=== PATIENT | male | born 1970 | race Caucasian/White ===

== ENCOUNTER 2019-09-15 14:26 | Emergency (ER) | payer SELFPAY ==
[~2019-09-15] VITALS: Ht 172.7 cm; Wt 86.2 kg
[2019-09-15] MEDS ORDERED: ONDANSETRON HCL INJ 2MG/ML 2ML 2 MG/ML VIAL IV STA (14:33)
[2019-09-15] MEDS ORDERED: SODIUM CHLORIDE 0.9% 1000ML 1,000 ML ONE (14:39)
[2019-09-15] MEDS ORDERED: FENTANYL CITRATE/PF 100MCG/2 ML INJ ONE ×2 (14:40→15:20)
[2019-09-15] MEDS ORDERED: CEFAZOLIN SOD 1 GM VIAL ONE (14:40)
[2019-09-15] MEDS ORDERED: TETANUS/DIPHTHERIA TOX ADULT 0.5 ML SYR ONE (14:41)
[2019-09-15] MEDS ORDERED: ONDANSETRON HCL INJ 2MG/ML 2ML 2 MG/ML VIAL ONE (14:41)
[2019-09-15] MEDS ORDERED: FENTANYL CITRATE/PF 100MCG/2 ML INJ IV ONE ×2 (14:45→15:30)
[2019-09-15] MEDS ORDERED: SODIUM CHLORIDE 0.9% 1000ML 1,000 ML IV SCH (14:45)
[2019-09-15] MEDS ORDERED: CEFAZOLIN SOD 1 GM VIAL IV SCH (14:45)
[2019-09-15] MEDS ORDERED: TETANUS/DIPHTHERIA TOX ADULT 0.5 ML SYR IM ONE (14:45)
[2019-09-15] MEDS ORDERED: LIDOCAINE HCL 2% LOCAL 20 ML VIAL ONE (14:54)
[2019-09-15] MEDS ORDERED: BUPIVACAINE/EPINEPHRINE 0.25% 10 ML SDV INJ ONE (14:54)
[2019-09-15] MEDS ORDERED: BACITRACIN ZINC 0.9GM TP ONE (14:56)
[2019-09-15] MEDS ORDERED: ONDANSETRON HCL INJ 2MG/ML 2ML 2 MG/ML VIAL IV NR (15:00)
[2019-09-15] MEDS ORDERED: LIDOCAINE HCL 2% LOCAL 20 ML VIAL INJ NR (15:15)
[2019-09-15] MEDS ORDERED: BACITRACIN ZINC 0.9GM TP NR (15:15)
--- NOTE | 2019-09-15 15:20 | NUR ---
yellow sock for pt
--- NOTE | 2019-09-15 15:21 | NUR ---
pt states pain 7-8/10 and demanding pain med for pt. md at bedside, very polite in dealing with and more meds ordered and carried out. pt polite.
--- NOTE | 2019-09-15 16:14 | Diagnostic Imaging Report ---
Hand limited right CPT code: 29372 Indication: Trauma Technique: AP and lateral images of the right hand obtained without comparison. Findings: Laceration at the tip of the fourth digit. No radiopaque foreign bodies in the soft tissues. No evidence of fracture, dislocation, focal osseous lesion. IMPRESSION: No osseous injury. Signed by: Dr. Wilfrido Barber MD on 09/15/2019 4:11 PM
--- NOTE | 2019-09-15 16:15 | Diagnostic Imaging Report ---
EXAMINATION: CXR 1 VIEW - HOPD COMPARISON: None INDICATION: ^fall, pain ^[id number] ^[id number] DISCUSSION: Frontal view of the chest obtained at 1526 hours. HEART AND MEDIASTINUM: The cardiomediastinal silhouette is unremarkable. LINES: None. LUNGS: The lungs are well inflated and clear. No pneumonia or pulmonary edema. PLEURA: No pleural effusion or pneumothorax. BONES AND SOFT TISSUES: No fracture or focal osseous lesion. The soft tissues are normal. IMPRESSION: No acute traumatic pathology by x-ray. Signed by: Dr. Wilfrido Barber MD on 09/15/2019 4:12 PM
--- NOTE | 2019-09-15 16:16 | Diagnostic Imaging Report ---
Forearm CPT code: 89386 Indication: Fell off roof Technique: A.P. and lateral views of the right forearm obtained. Findings: No abnormalities of the radius or ulna. The carpal bones are intact and normal in alignment. Distal humerus is normal. No joint effusion. Traction enthesophytes posterior to the olecranon. No foreign bodies in the soft tissues. IMPRESSION: No traumatic pathology. Signed by: Dr. Wilfrido Barber MD on 09/15/2019 4:13 PM
--- NOTE | 2019-09-15 16:18 | Diagnostic Imaging Report ---
Fingers Indication: Fell off roof Technique: Three views of the right third digit obtained Comparison: None Findings: The osseous structures are intact without displaced fracture or dislocation. No focal osseous lesions. Laceration at the tip of the fourth digit. No radio-opaque foreign bodies in the soft tissues. IMPRESSION: No acute displaced fracture or dislocation. Signed by: Dr. Wilfrido Barber MD on 09/15/2019 4:15 PM
--- NOTE | 2019-09-15 16:18 | Diagnostic Imaging Report ---
History: Trauma, fell off roof Comparison studies: None Technique: Axial images were obtained from the skull base to the vertex. Coronal and sagittal reconstructions obtained from the axial data. Dose modulation, iterative reconstruction, and/or weight based adjustment of the mA/kV was utilized to reduce the radiation dose to as low as reasonably achievable. Intravenous contrast: None Findings: Scalp/skull: No abnormalities. No fractures, blastic or lytic lesions. Extra-axial spaces: No masses. No fluid collections. Brain sulci: Appropriate for age. Ventricles: Normal in size and configuration. No hydrocephalus. Parenchyma: No abnormal densities. No masses, hemorrhage, acute or chronic cortical vascular insults. Sellar/suprasellar region: No abnormalities Craniocervical junction: Patent foramen magnum. No Chiari one malformation. Incidental findings: None. IMPRESSION: No acute abnormalities. The images and preliminary report were reviewed and signed by Dr. Dulce Sena, neuroradiology faculty, on 09/16/2019 at 0742 hours. Signed by: Dr. Dulce Sena M.D. on 09/16/2019 7:43 AM
[2019-09-15] MEDS ORDERED: NORCO 10-325 T1 EACH PO (16:44)
[2019-09-15] MEDS ORDERED: HYDROCODONE/APAP 10MG-325MG TAB PO ONE (16:45)
[2019-09-15] MEDS ORDERED: KEFLEX500 MG PO (16:46)
[2019-09-15] MEDS ORDERED: MOTRIN800 MG PO (16:46)
[2019-09-15] MEDS ORDERED: HYDROCODONE/APAP 5MG-325MG TAB ONE (16:57)
--- NOTE | 2019-09-15 17:00 | NUR ---
WOUND WAS NUMBED, CLEANED, SUTURED AND DSG OF XEROFORM, TUBE GAUZE, COBAN WITH SPLINT TO FINGER. PT TOLERATED ALL VERY WELL.
== END 2019-09-15 17:07 | disposition home or self-care (01) ==
LOC: FSED 14:26
DX: S61.312A Laceration without foreign body of right middle finger with damage to nail, initial encounter (principal); S60.511A Abrasion of right hand, initial encounter; S50.811A Abrasion of right forearm, initial encounter; W11.XXXA Fall on and from ladder, initial encounter; Y92.008 Other place in unspecified non-institutional (private) residence as the place of occurrence of the external cause
CPT/HCPCS: 12041; 64450; 70450; 71045; 73090; 73120; 73140; 80048; 85025; 90471; 90714; 99285; J0690; J2001; J2405; J3010; J7030